=== PATIENT | female | born 2000 | race Asian ===

== ENCOUNTER 2019-06-29 14:36 | Inpatient (IN) ==
[2019-06-29] MEDS ORDERED: SODIUM CHLORIDE 0.9% 1000ML 1,000 ML IV ONE ×2 (15:03→17:05)
[2019-06-29] MEDS ORDERED: KETOROLAC 30 MG/ML VIAL IV STA (15:05)
[2019-06-29] MEDS ORDERED: ACETAMINOPHEN 325 MG TAB PO STA (15:05)
--- NOTE | 2019-06-29 15:19 | XRay Report ---
XR chest 1V portable CLINICAL HISTORY: SEPSIS COMPARISON STUDY: No previous studies for comparison. FINDINGS: Lung volumes are normal. Lungs are clear. There is no pneumothorax or pleural effusion. Car diac size is normal. Mediastinal contours are normal. There is no evidence for pulmonary edema. IMPRESSION: No acute cardiopulmonary findings. ACT 112: Negative or not required by law. Electronically signed by: Mitch Pena M.D. 06/29/2019 3:18 PM
[2019-06-29 15:39] LABS: Basophils # (auto) 0.03 K/uL (0-0.2); Basophils % (auto) 0.3 %; Eosinophils # (auto) 0.09 K/uL (0-0.5); Eosinophils % (auto) 0.8 %; Hematocrit (blood only) 39.1 % (37-47); Hemoglobin 13.5 g/dL (12.0-16.0); Immature Granulocytes # (auto) 0.03 K/uL (0.00-0.02); Immature Granulocytes % (auto) 0.3 %; Mean Corpuscular Hemoglobin 32.8 pg (25-34); Mean Corpuscular Hgb Conc 34.5 g/dL (32-36); Mean Corpuscular Volume 95.1 fL (80-100); Monocytes # (auto) 0.89 K/uL (0.11-0.59); Monocytes % (auto) 7.9 %; Neutrophils # (auto) 9.37 K/uL (1.4-6.5); Neutrophils % (auto) 82.7 %; Platelet Count 280 K/uL (130-400); RDW Coefficient of Variation 11.8 % (11.5-14.5); RDW Standard Deviation 41.3 fL (36.4-46.3); Red Blood Count 4.11 M/uL (4.2-5.4); White Blood Count 11.31 K/uL (4.8-10.8)
[2019-06-29 15:40] LABS: INR 1.1 (0.9-1.1); Partial Thromboplastin Ratio 1.1; Partial Thromboplastin Time 30.6 Seconds (21.0-31.0); Prothrombin Time 10.9 Seconds (9.0-12.0)
[2019-06-29 15:50] LABS: Alanine Aminotransferase 10 U/L (12-78); Albumin Level 4.1 gm/dl (3.4-5.0); Aspartate Aminotransferase 13 U/L (15-37); BUN Creatinine Ratio 24.4 (10-20); Blood Urea Nitrogen 17 mg/dl (7-18); Calcium 8.9 mg/dl (8.5-10.1); Carbon Dioxide 24 mmol/L (21-32); Chloride 107 mmol/L (98-107); Creatinine Clr Calc Pharmacy 101.2 ml/min; Est GFR (African American) 145.2; Est GFR (Non-African American) 125.3; Glucose 87 mg/dl (70-99); Magnesium 2.1 mg/dl (1.8-2.4); Potassium 3.6 mmol/L (3.5-5.1); Sodium 138 mmol/L (136-145)
[2019-06-29 15:55] LABS: Albumin Globulin Ratio 1.1 (0.9-2); Alkaline Phosphatase 84 U/L (45-117); Bilirubin,Total 0.7 mg/dl (0.2-1); Globulin 3.8 gm/dl (2.5-4.0); Total Protein 7.9 gm/dl (6.4-8.2); Troponin I < 0.015 ng/ml (0-0.045)
[2019-06-29 17:30] LABS: Appearance Urine Clear (Clear); Bacteria Urine Automated Negative (Negative); Bilirubin Urine Negative (Negative); Blood Urine 2+ (Negative); Color Urine Dark Yellow; Epithelial Cell Urine Auto 20-30 /lpf (0-5); Glucose Urine UA Negative (Negative); Leukocyte Esterase Urine Negative (Negative); Nitrite Urine Negative (Negative); Protein Urine Negative (Negative); Urobilinogen Urine Negative (Negative); pH Urine 5.5 (4.5-7.5)
[2019-06-29 17:33] LABS: Ketones Urine 4+ (Negative)
[2019-06-29 18:02] LABS: Influenza A virus by PCR Neg for Influ A (Neg); Influenza B virus by PCR Neg for Influ B (Neg)
[2019-06-29] MEDS ORDERED: OPTIRAY 320 125ml IV PRN (18:39)
--- NOTE | 2019-06-29 18:42 | Emergency Department Note ---
Entered by Eric Ayala acting as a scribe for Joselito Aguiar MD History of Present Illness General Chief complaint: Chest Pain Stated complaint: CHEST PAIN Time Seen by Provider: 06/29/19 14:46 Source: patient Limitations: no limitations History of Present Illness Location: chest Pain Consistency: + constant Maximum Pain Intensity: 5 Quality: + constant Relieved By: + rest Exacerbated By: + other (coughing) Associated symptoms: + cough The patient is a 18 year-old female w/ no pertinent PMHx who presents to the ED w/ CC of constant chest pain. The patient states she was referred to the ED from [facility]. She states her pain is worse with cough. She notes she did not take any medications. She states she has not been bringing up anything with her cough. She states resting makes her pain better. She states she was just at the [facility] in [place]. She states none of her roommates are sick. The patient denies having a history of blood clots, taking daily medications, having prior surgeries, and having a family history of medical conditions. She states her vaccinations are UTD. She denies smoking. Home Medications Home Medications Medication Instructions Recorded Confirmed Type ibuprofen 400 mg PO Q6H PRN 06/21/19 06/29/19 History Allergies Allergy/AdvReac Type Severity Reaction Status Date / Time No Known Allergies Allergy Unverified 06/29/19 15:22 Past Med/Surg History Medical History No pertinent past medical history Surgical History No pertinent past surgical history Family History Other No pertinent family history Social History Preferred Language: Cypriot Communication Ability: Effective Communication Tools: [employer] Intern Required: No Beliefs That Will Affect Care: None Current Living Situation: Other Current Living Situation Comment: student Feels Safe at Home: Yes Smoking Status: Unknown if ever smoked Hx Alcohol Use: No Hx Substance Use: No Review of Systems See HPI for pertinent positives & negatives. and A total of 10 systems reviewed and were otherwise negative Physical Exam Vital Signs Vital Signs - 24 hr 06/29/19 14:38 06/29/19 15:29 06/29/19 15:30 Temperature 37.5 C Temperature Source Oral Pulse Rate 120 H 103 H Pulse Rate from SpO2 Sensor 105 H Respiratory Rate 20 27 H Respiratory Effort / Characteristics Non-Labored Spontaneous Respiratory Depth Normal Blood Pressure 116/53 L Blood Pressure Mean 74 Pulse Oximetry 98 98 98 Oxygen Delivery Method Room Air Room Air Sepsis Recent Fever Within 48 Hours No Sepsis New/Unexplained Change in Mental Status No Sepsis Action Taken by Nursing No Action Required 06/29/19 15:32 06/29/19 15:33 06/29/19 15:40 Temperature Temperature Source Pulse Rate 113 H 109 H 111 H Pulse Rate from SpO2 Sensor 114 H 109 H 109 H Respiratory Rate 24 28 H 17 Respiratory Effort / Characteristics Respiratory Depth Blood Pressure 118/65 Blood Pressure Mean 77 Pulse Oximetry 97 94 100 Oxygen Delivery Method Sepsis Recent Fever Within 48 Hours Sepsis New/Unexplained Change in Mental Status Sepsis Action Taken by Nursing 06/29/19 15:50 06/29/19 16:00 06/29/19 16:01 Temperature Temperature Source Pulse Rate 108 H 104 H 101 H Pulse Rate from SpO2 Sensor 107 H 108 H 102 H Respiratory Rate 20 20 17 Respiratory Effort / Characteristics Respiratory Depth Blood Pressure 119/69 Blood Pressure Mean 83 Pulse Oximetry 97 99 98 Oxygen Delivery Method Sepsis Recent Fever Within 48 Hours Sepsis New/Unexplained Change in Mental Status Sepsis Action Taken by Nursing 06/29/19 16:10 06/29/19 16:20 06/29/19 16:30 Temperature Temperature Source Pulse Rate 105 H 104 H 99 H Pulse Rate from SpO2 Sensor 104 H 101 H 99 H Respiratory Rate 18 18 15 Respiratory Effort / Characteristics Respiratory Depth Blood Pressure 117/78 Blood Pressure Mean 83 Pulse Oximetry 100 99 99 Oxygen Delivery Method Sepsis Recent Fever Within 48 Hours Sepsis New/Unexplained Change in Mental Status Sepsis Action Taken by Nursing 06/29/19 16:31 06/29/19 16:40 06/29/19 16:50 Temperature Temperature Source Pulse Rate 100 H 93 H 86 Pulse Rate from SpO2 Sensor 101 H 93 H 87 Respiratory Rate 24 26 H 16 Respiratory Effort / Characteristics Respiratory Depth Blood Pressure Blood Pressure Mean Pulse Oximetry 98 97 97 Oxygen Delivery Method Sepsis Recent Fever Within 48 Hours Sepsis New/Unexplained Change in Mental Status Sepsis Action Taken by Nursing 06/29/19 17:00 06/29/19 17:10 06/29/19 17:20 Temperature Temperature Source Pulse Rate 89 105 H 96 H Pulse Rate from SpO2 Sensor 104 H 106 H 96 H Respiratory Rate 13 20 19 Respiratory Effort / Characteristics Respiratory Depth Blood Pressure Blood Pressure Mean Pulse Oximetry 92 97 98 Oxygen Delivery Method Sepsis Recent Fever Within 48 Hours Sepsis New/Unexplained Change in Mental Status Sepsis Action Taken by Nursing 06/29/19 17:30 06/29/19 17:31 06/29/19 17:40 Temperature Temperature Source Pulse Rate 88 103 H 93 H Pulse Rate from SpO2 Sensor 91 H 102 H 94 H Respiratory Rate 22 21 18 Respiratory Effort / Characteristics Respiratory Depth Blood Pressure 115/59 L Blood Pressure Mean 74 Pulse Oximetry 98 97 98 Oxygen Delivery Method Sepsis Recent Fever Within 48 Hours Sepsis New/Unexplained Change in Mental Status Sepsis Action Taken by Nursing 06/29/19 17:50 06/29/19 18:00 06/29/19 18:01 Temperature Temperature Source Pulse Rate 100 H 98 H 98 H Pulse Rate from SpO2 Sensor 99 H Respiratory Rate 19 25 H 26 H Respiratory Effort / Characteristics Respiratory Depth Blood Pressure 102/71 Blood Pressure Mean 82 Pulse Oximetry 98 Oxygen Delivery Method Sepsis Recent Fever Within 48 Hours Sepsis New/Unexplained Change in Mental Status Sepsis Action Taken by Nursing 06/29/19 18:10 06/29/19 18:20 Temperature Temperature Source Pulse Rate 106 H 100 H Pulse Rate from SpO2 Sensor Respiratory Rate 16 23 Respiratory Effort / Characteristics Respiratory Depth Blood Pressure Blood Pressure Mean Pulse Oximetry Oxygen Delivery Method Sepsis Recent Fever Within 48 Hours Sepsis New/Unexplained Change in Mental Status Sepsis Action Taken by Nursing GENERAL: Well appearing, well nourished, NAD, non-toxic. EYE EXAM: Normal conjunctiva. PERRL, no anisocoria and EOM's grossly intact w/o pain. OROPHARYNX: Moist mucous membranes. Normal dentition. NECK: Supple, no nuchal rigidity, no adenopathy, non-tender. no signs of meningismus. LUNGS: Clear to auscultation. Normal chest wall mechanics. HEART: Tachycardic rate. Normal rhythm. No MRG. CHEST: Mild reproducible chest wall pain bilateral lower chest. ABDOMEN: Abdomen soft, non-tender, normo-active bowel sounds, no masses, no rebound or guarding. BACK: No CVA TTP. SKIN: No rashes and no bruising. UPPER EXTREMITIES: Upper extremities are grossly normal. LOWER EXTREMITIES: No pitting edema. No calf pain. Negative Eugene's sign. NEURO EXAM: Cranial nerves II-XII grossly intact, normal speech. Moves all 4 extremities on command w/o issue. Course Course 1540: The patient was evaluated in room A9B, and a complete history and physical examination were performed. 1543: Continuous Cardiac Monitoring: An order was placed for continuous cardiac monitoring. The monitor shows a rate of 114 with a sinus tachycardia. 1700: I reevaluated the patient. I updated the patient on her labs and imaging and discussed the need for admission. She agrees with the plan. 1704: I discussed the patient's case with Dr. Feliz - [facility] Hospitalist. She will evaluate the patient for further management. Administered Medications Discontinued Medications Acetaminophen (Tylenol) 650 mg PO NOW STA Stop: 06/29/19 15:06 Last Admin: 06/29/19 15:29 Dose: 650 mg Documented by: [id number] Sodium Chloride (Nss 1000ml) 1,000 mls @ 999 mls/hr IV .Q1H1M ONE Stop: 06/29/19 16:03 Last Infusion: 06/29/19 17:24 Dose: 0 mls/hr Documented by: [id number] Admin: 06/29/19 15:29 Dose: 999 mls/hr Documented by: [id number] Sodium Chloride (Nss 1000ml) 1,000 mls @ 999 mls/hr IV .Q1H1M ONE Stop: 06/29/19 18:05 Last Infusion: 06/29/19 18:55 Dose: 0 mls/hr Documented by: [id number] Admin: 06/29/19 17:53 Dose: 999 mls/hr Documented by: [id number] Sodium Chloride (Nss 1000ml) 1,000 mls @ 80 mls/hr IV .[id number] RONEN Stop: 07/29/19 20:55 Last Infusion: 06/30/19 10:58 Dose: 0 mls/hr Documented by: [id number] Admin: 06/30/19 08:55 Dose: 80 mls/hr Documented by: [id number] Infusion: 06/30/19 08:55 Dose: 80 mls/hr Documented by: [id number] Admin: 06/29/19 22:23 Dose: 80 mls/hr Documented by: [id number] Ceftriaxone Sodium 2,000 mg/ (Dextrose) 70 mls @ 100 mls/hr IV Q24H [facility]; Protocol Stop: 07/04/19 21:59 Last Infusion: 06/29/19 23:05 Dose: 0 mls/hr Documented by: [id number] Admin: 06/29/19 22:23 Dose: 100 mls/hr Documented by: [id number] Ioversol (Optiray 320 125ml) 80 ml IV ONCE PRN PRN Reason: Interaction Checking Stop: 07/03/19 18:38 Last Admin: 06/29/19 18:39 Dose: 80 ml Documented by: [id number] Ketorolac Tromethamine (Toradol) 30 mg IV NOW STA Stop: 06/29/19 15:06 Last Admin: 06/29/19 15:29 Dose: 30 mg Documented by: [id number] Medical Decision Making Differential Diagnosis Differential diagnosis: Etiologies such as viral syndrome, otitis, pharyngitis, pneumonia, influenza, meningitis, urinary tract infection, sepsis, bacteremia, as well as others were entertained. Medical Records Attestation: I reviewed the patient's medical records. Home Medications Current Medication List: was personally reviewed by me Laboratory Data Attestation: I reviewed the patient's lab results. Result diagrams: 06/30/19 06:55 06/30/19 00:16 Lab Results 06/29/19 06/29/19 06/29/19 Range/Units 15:15 15:15 15:15 WBC 11.31 H (4.8-10.8) K/uL RBC 4.11 L (4.2-5.4) M/uL Hgb 13.5 (12.0-16.0) g/dL Hct 39.1 (37-47) % MCV 95.1 (80-100) fL MCH 32.8 (25-34) pg MCHC 34.5 (32-36) g/dL RDW Std Deviation 41.3 (36.4-46.3) fL RDW Coeff of Danita 11.8 (11.5-14.5) % Plt Count 280 (130-400) K/uL MPV 9.0 (7.4-10.4) fL Immature Gran % (Auto) 0.3 % Neut % (Auto) 82.7 % Lymph % (Auto) 8.0 % Edwards % (Auto) 7.9 % Eos % (Auto) 0.8 % Baso % (Auto) 0.3 % Immature Gran # (Auto) 0.03 H (0.00-0.02) K/uL Neut # (Auto) 9.37 H (1.4-6.5) K/uL Lymph # (Auto) 0.90 L (1.2-3.4) K/uL Edwards # (Auto) 0.89 H (0.11-0.59) K/uL Eos # (Auto) 0.09 (0-0.5) K/uL Baso # (Auto) 0.03 (0-0.2) K/uL Absolute Nucleated RBC 0.00 (0-0) K/uL Nucleated RBC % (auto) 0.0 % PT 10.9 (9.0-12.0) Seconds INR 1.1 (0.9-1.1) APTT 30.6 (21.0-31.0) Seconds PTT Ratio 1.1 Sodium (136-145) mmol/L Potassium (3.5-5.1) mmol/L Chloride (98-107) mmol/L Carbon Dioxide (21-32) mmol/L Anion Gap (3-11) BUN (7-18) mg/dl Creatinine (0.6-1.2) mg/dl Est Cr Clr Drug Dosing ml/min Est GFR ( Amer) Est GFR (Non-Af Amer) BUN/Creatinine Ratio (10-20) Glucose (70-99) mg/dl Lactate (0.4-2.0) mmol/L Calcium (8.5-10.1) mg/dl Magnesium (1.8-2.4) mg/dl Total Bilirubin (0.2-1) mg/dl AST (15-37) U/L ALT (12-78) U/L Alkaline Phosphatase (45-117) U/L Troponin I (0-0.045) ng/ml Total Protein (6.4-8.2) gm/dl Albumin (3.4-5.0) gm/dl Globulin (2.5-4.0) gm/dl Albumin/Globulin Ratio (0.9-2) Procalcitonin 0.09 (0-0.5) ng/ml Urine Color Urine Appearance (Clear) Urine pH (4.5-7.5) Ur Specific [place] (1.000-1.030) Urine Protein (Negative) Urine Glucose (UA) (Negative) Urine Ketones (Negative) Urine Blood (Negative) Urine Nitrite (Negative) Urine Bilirubin (Negative) Urine Urobilinogen (Negative) Ur Leukocyte Esterase (Negative) Urine WBC (Auto) (0-5) /hpf Urine RBC (Auto) (0-4) /hpf U Hyaline Cast (Auto) (0-5) /lpf U Epithel Cells (Auto) (0-5) /lpf Urine Bacteria (Auto) (Negative) Influenza Type A (PCR) (Neg) Influenza Type B (PCR) (Neg) Miscellaneous Test 06/29/19 06/29/19 06/29/19 Range/Units 15:15 15:15 17:10 WBC (4.8-10.8) K/uL RBC (4.2-5.4) M/uL Hgb (12.0-16.0) g/dL Hct (37-47) % MCV (80-100) fL MCH (25-34) pg MCHC (32-36) g/dL RDW Std Deviation (36.4-46.3) fL RDW Coeff of Danita (11.5-14.5) % Plt Count (130-400) K/uL MPV (7.4-10.4) fL Immature Gran % (Auto) % Neut % (Auto) % Lymph % (Auto) % Edwards % (Auto) % Eos % (Auto) % Baso % (Auto) % Immature Gran # (Auto) (0.00-0.02) K/uL Neut # (Auto) (1.4-6.5) K/uL Lymph # (Auto) (1.2-3.4) K/uL Edwards # (Auto) (0.11-0.59) K/uL Eos # (Auto) (0-0.5) K/uL Baso # (Auto) (0-0.2) K/uL Absolute Nucleated RBC (0-0) K/uL Nucleated RBC % (auto) % PT (9.0-12.0) Seconds INR (0.9-1.1) APTT (21.0-31.0) Seconds PTT Ratio Sodium 138 (136-145) mmol/L Potassium 3.6 (3.5-5.1) mmol/L Chloride 107 (98-107) mmol/L Carbon Dioxide 24 (21-32) mmol/L Anion Gap 7.0 (3-11) BUN 17 (7-18) mg/dl Creatinine 0.69 (0.6-1.2) mg/dl Est Cr Clr Drug Dosing 101.2 ml/min Est GFR ( Amer) 145.2 Est GFR (Non-Af Amer) 125.3 BUN/Creatinine Ratio 24.4 H (10-20) Glucose 87 (70-99) mg/dl Lactate 1.0 (0.4-2.0) mmol/L Calcium 8.9 (8.5-10.1) mg/dl Magnesium 2.1 (1.8-2.4) mg/dl Total Bilirubin 0.7 (0.2-1) mg/dl AST 13 L (15-37) U/L ALT 10 L (12-78) U/L Alkaline Phosphatase 84 (45-117) U/L Troponin I < 0.015 (0-0.045) ng/ml Total Protein 7.9 (6.4-8.2) gm/dl Albumin 4.1 (3.4-5.0) gm/dl Globulin 3.8 (2.5-4.0) gm/dl Albumin/Globulin Ratio 1.1 (0.9-2) Procalcitonin (0-0.5) ng/ml Urine Color Dark Yellow Urine Appearance Clear (Clear) Urine pH 5.5 (4.5-7.5) Ur Specific [place] 1.030 (1.000-1.030) Urine Protein Negative (Negative) Urine Glucose (UA) Negative (Negative) Urine Ketones 4+ H (Negative) Urine Blood 2+ H (Negative) Urine Nitrite Negative (Negative) Urine Bilirubin Negative (Negative) Urine Urobilinogen Negative (Negative) Ur Leukocyte Esterase Negative (Negative) Urine WBC (Auto) 5-10 H (0-5) /hpf Urine RBC (Auto) 10-30 H (0-4) /hpf U Hyaline Cast (Auto) 1-5 (0-5) /lpf U Epithel Cells (Auto) 20-30 H (0-5) /lpf Urine Bacteria (Auto) Negative (Negative) Influenza Type A (PCR) (Neg) Influenza Type B (PCR) (Neg) Miscellaneous Test 06/29/19 06/29/19 Range/Units 17:10 17:13 WBC (4.8-10.8) K/uL RBC (4.2-5.4) M/uL Hgb (12.0-16.0) g/dL Hct (37-47) % MCV (80-100) fL MCH (25-34) pg MCHC (32-36) g/dL RDW Std Deviation (36.4-46.3) fL RDW Coeff of Danita (11.5-14.5) % Plt Count (130-400) K/uL MPV (7.4-10.4) fL Immature Gran % (Auto) % Neut % (Auto) % Lymph % (Auto) % Edwards % (Auto) % Eos % (Auto) % Baso % (Auto) % Immature Gran # (Auto) (0.00-0.02) K/uL Neut # (Auto) (1.4-6.5) K/uL Lymph # (Auto) (1.2-3.4) K/uL Edwards # (Auto) (0.11-0.59) K/uL Eos # (Auto) (0-0.5) K/uL Baso # (Auto) (0-0.2) K/uL Absolute Nucleated RBC (0-0) K/uL Nucleated RBC % (auto) % PT (9.0-12.0) Seconds INR (0.9-1.1) APTT (21.0-31.0) Seconds PTT Ratio Sodium (136-145) mmol/L Potassium (3.5-5.1) mmol/L Chloride (98-107) mmol/L Carbon Dioxide (21-32) mmol/L Anion Gap (3-11) BUN (7-18) mg/dl Creatinine (0.6-1.2) mg/dl Est Cr Clr Drug Dosing ml/min Est GFR ( Amer) Est GFR (Non-Af Amer) BUN/Creatinine Ratio (10-20) Glucose (70-99) mg/dl Lactate (0.4-2.0) mmol/L Calcium (8.5-10.1) mg/dl Magnesium (1.8-2.4) mg/dl Total Bilirubin (0.2-1) mg/dl AST (15-37) U/L ALT (12-78) U/L Alkaline Phosphatase (45-117) U/L Troponin I (0-0.045) ng/ml Total Protein (6.4-8.2) gm/dl Albumin (3.4-5.0) gm/dl Globulin (2.5-4.0) gm/dl Albumin/Globulin Ratio (0.9-2) Procalcitonin (0-0.5) ng/ml Urine Color Urine Appearance (Clear) Urine pH (4.5-7.5) Ur Specific [place] (1.000-1.030) Urine Protein (Negative) Urine Glucose (UA) (Negative) Urine Ketones (Negative) Urine Blood (Negative) Urine Nitrite (Negative) Urine Bilirubin (Negative) Urine Urobilinogen (Negative) Ur Leukocyte Esterase (Negative) Urine WBC (Auto) (0-5) /hpf Urine RBC (Auto) (0-4) /hpf U Hyaline Cast (Auto) (0-5) /lpf U Epithel Cells (Auto) (0-5) /lpf Urine Bacteria (Auto) (Negative) Influenza Type A (PCR) Neg for Influ A (Neg) Influenza Type B (PCR) Neg for Influ B (Neg) Miscellaneous Test REPORT Imaging Data Radiologist's Impression: Radiology results as stated below per my review and the radiologist's interpretation: XR chest 1V portable CLINICAL HISTORY: SEPSIS COMPARISON STUDY: No previous studies for comparison. FINDINGS: Lung volumes are normal. Lungs are clear. There is no pneumothorax or pleural effusion. Cardiac size is normal. Mediastinal contours are normal. There is no evidence for pulmonary edema. IMPRESSION: No acute cardiopulmonary findings. ACT 112: Negative or not required by law. Electronically signed by: Mitch Pena M.D. 06/29/2019 3:[address] angio chest PE protocol CLINICAL HISTORY: 18 years-old Female presenting with abnormal, bilateral chest/rib pain, pleuritic chest pain. TECHNIQUE: Multidetector CT angiography of the chest was performed after administration of intravenous contrast. 3-D volumetric and/or maximum intensity projection (MIP) images were subsequently reconstructed for review. IV contrast: 80 mL of Optiray 320. One or more dose lowering techniques were used consistent with the principles of ALARA (as low as reasonably achievable), including automatic exposure control, mA or kV adjustment to individual patient size, and/or use of iterative reconstruction. COMPARISON: Chest x-ray performed earlier today. CT DOSE (mGy.cm): The estimated cumulative dose is 222.09 mGy.cm. FINDINGS: Impregnator Electrolytic Capacitors topogram: Unremarkable. Pulmonary vasculature: The study is adequate for assessment of the pulmonary vascular tree. No filling defect within the pulmonary arteries to suggest embolus. Main pulmonary artery is not enlarged. No flattening of the interventricular septum. No intracardiac filling defect. No reflux of contrast into the hepatic veins. Remaining chest: Soft tissues: Normal thyroid and thoracic inlet. No axillary, supraclavicular, mediastinal, or hilar lymphadenopathy. Normal aorta. Normal heart size. No pericardial or pleural effusion. Upper abdomen normal. Lungs and airways: No pneumothorax. Central airways patent. Pulmonary arteries are not significantly enlarged relative to adjacent bronchi. No interlobular septal thickening. No focal infiltrate or nodule. Musculoskeletal: Normal osseous structures. IMPRESSION: 1. No evidence of pulmonary embolus. No acute intrathoracic pathology. ACT 112: Negative or not required by law. Electronically signed by: Angel Issa M.D. 06/29/2019 6:50 PM Dictated: 06/29/191845 Transcribed: 06/29/191845 ECG Data Attestation: I personally reviewed and interpreted this ECG as follows: Indication: + chest pain Rate (beats per minute): 114 ECG Intervals/blocks: + Normal QRS, + Normal QT, + Normal IL and + Normal QT-c ECG [place]: + Right axis deviation ECG ST segments: + T-wave inversions (inferiorly and in V3) Comparison ECG Date: no prior available Blood Pressure Blood Pressure Findings: Normal blood pressure Blood Pressure Disposition: further management by hospitalist [facility] Narrative The patient is a 18 year-old female w/ no pertinent PMHx who presents to the ED w/ CC of constant chest pain. Patient was seen in eval at the bedside. The patient did present with upper respiratory type symptoms rib pain and cough. The patient is a recent travel letter from [facility]. Given this concern the patient was placed in isolation room with respiratory precautions and negative pressure isolation. The patient did a bladder completed along with influenza swabs. The patient was treated with IV fluids. The patient reportedly did have positive d-dimer as an outpatient and so a CT angiogram PE study was also ordered. I did speak with the on-call hospitalist given the concerns for possible public health issues given the recent travel from [place]. Patient is agreeable to stay at this time. Additional swabs and studies were ordered to be sent to the [facility] for further testing. Patient was admitted to the medicine service. Impression & Plan URI (upper respiratory infection), Rib pain, Cough Discharge Plan Visit Data *Final* Discharge Date/Time: 06/29/19 20:49 Chief Complaint: Chest Pain Stated Complaint: CHEST PAIN ED Provider: Joselito Aguiar Discharge Problem: URI (upper respiratory infection), Rib pain, Cough Patient Disposition: Admitted As Inpatient Discharge Instructions Interventions: ED Discharge Assessment Last Done: 06/29/19 20:49 Discharge Problem: URI (upper respiratory infection) Qualifiers: URI type: unspecified URI Qualified Code(s): J06.9 - Acute upper respiratory infection, unspecified The scribe's documentation has been prepared under my direction and personally reviewed by me in its entirety. I confirm that the note above accurately reflects all work, treatment, procedures, and medical decision making performed by me.
--- NOTE | 2019-06-29 18:52 | CT Scan Report ---
CT angio chest PE protocol CLINICAL HISTORY: 18 years-old Female presenting with abnormal, bilateral chest/rib pain, pleuritic c hest pain. TECHNIQUE: Multidetector CT angiography of the chest was performed after administration of intravenou s contrast. 3-D volumetric and/or maximum intensity projection (MIP) images were subsequently reconst ructed for review. IV contrast: 80 mL of Optiray 320. One or more dose lowering techniques were used consistent with the principles of ALARA (as low as reasonably achievable), including automatic exposu re control, mA or kV adjustment to individual patient size, and/or use of iterative reconstruction. COMPARISON: Chest x-ray performed earlier today. CT DOSE (mGy.cm): The estimated cumulative dose is 222.09 mGy.cm. FINDINGS: Word Processor Operator topogram: Unremarkable. Pulmonary vasculature: The study is adequate for assessment of the pulmonary vascular tree. No filling defect within the pul monary arteries to suggest embolus. Main pulmonary artery is not enlarged. No flattening of the inter ventricular septum. No intracardiac filling defect. No reflux of contrast into the hepatic veins. Remaining chest: Soft tissues: Normal thyroid and thoracic inlet. No axillary, supraclavicular, mediastinal, or hilar lymphadenopathy. Normal aorta. Normal heart size. No pericardial or pleural effusion. Upper abdomen n ormal. Lungs and airways: No pneumothorax. Central airways patent. Pulmonary arteries are not significantly enlarged relative to adjacent bronchi. No interlobular septal thickening. No focal infiltrate or nodu le. Musculoskeletal: Normal osseous structures. IMPRESSION: 1. No evidence of pulmonary embolus. No acute intrathoracic pathology. ACT 112: Negative or not required by law. Electronically signed by: Angel Issa M.D. 06/29/2019 6:50 PM
[2019-06-29] MEDS ORDERED: KETOROLAC 30 MG/ML VIAL IV PRN (20:56)
[2019-06-29] MEDS ORDERED: MAGNESIUM HYDROXIDE SUSP 30 ML UDC PO PRN (20:56)
[2019-06-29] MEDS ORDERED: ACETAMINOPHEN 325 MG TAB PO PRN (20:56)
[2019-06-29] MEDS ORDERED: ALUMINUM/MAGNESIUM SUSP 30 ML UDC PO PRN (20:56)
[2019-06-29] MEDS ORDERED: ONDANSETRON INJ 2 MG/ML 2 ML VIAL IV PRN (20:56)
--- NOTE | 2019-06-29 21:24 | History & Physical Report ---
Date of Service June 29, 2019 Assessment & Plan (1) Urinary tract infection: Admit patient to PCU on telemetry Vital signs every 4 hours Started ceftriaxone 2 g IV daily for urinary tract infection empirically Urine culture pending Was a suspect the patient has infection with coronavirus by the ER physician. We will continue following troponins x3. DVT prophylaxis SCDs and teds. Patient is ambulatory. Sputum culture and blood culture pending. Follow-up with results. Full code Present on Admission?: Yes (2) Rib pain: Not clear origin of the rib pain on right side. X rays no acute cardiopulmonary findings. Pain management Present on Admission?: Yes History of Present Illness Chief Complaint: Right upper quadrant pain, chest pain Primary Care Provider: [facility] The patient is a 18 years old female without pertinent past medical history who presented to the emergency room with complaint of constant chest pain and right upper quadrant pain. The patient states that she was referred to the ED from [facility] at bedtime. She states that her pain is worse with cough. She states she is not taking any medication. Patient states that she has not been bringing up any any sputum. She states resting makes her pain better. She states that she was just [facility] in [place]. She states none of her roommates are sick. The patient denies fever, chills, abdominal pain frequency or urgency. Patient denies abusing drugs, smoking, using power drinks. Labs are reviewed: WBC is 11.31, hemoglobin 13.5, hematocrit 39.1, platelets 280, sodium 138, potassium 3.6, chloride 107, anion gap 7, BUN 17, creatinine 0.69, GFR 125.3, lactate 1, calcium 8.9, magnesium 2.1, total bilirubin 0.7, AST 13, ALT 10, troponin 0.015. Total protein 7.9, albumin 4.1, globulin 3.8, procalcitonin 0.09 beta-hCG negative. Urine 5.5, specific gravity 1.030, urine ketone four-point positive, urine blood 2+, WBCs 5-10, urine RBCs 10-30, epithelial cells 20-30. Influenza A and B neg. chest CTA shows no evidence of pulmonary embolus no acute intrathoracic pathology. Decision was made to admit patient to PCU on telemetry we will rule out elkins virus, treat urinary tract infection. Allergies Allergy/AdvReac Type Severity Reaction Status Date / Time No Known Allergies Allergy Unverified 06/29/19 15:22 Home Medications Home Medications Medication Instructions Recorded Confirmed Type ibuprofen 400 mg PO Q6H PRN 06/21/19 06/29/19 History Past Med/Surg History Medical History No pertinent past medical history Surgical History No pertinent past surgical history Family History Other No pertinent family history Social History Preferred Language: Divehi Communication Tools: IPad Feels Safe at Home: Yes Smoking Status: Never smoker Review of Systems Review of Systems: All systems reviewed & are unremarkable except as noted in HPI & below Physical Exam Constitutional: WD/WN, vitals as above well developed Eyes: PERRL, conjunctivae normal, anicteric sclerae ENMT: external ear and nose normal, oropharynx normal Neck: trachea midline, no thyromegaly Respiratory: normal respiratory effort, lungs clear to auscultation Cardiovascular: RRR, no murmur, no edema Gastrointestinal (Abdomen): normal bowel sounds, soft, nontender, no hepatosplenomegaly Musculoskeletal: no cyanosis or clubbing, extremities motor strength 5/5 Skin: no rashes, warm and dry Neurologic: patellar DTR's 2+ bilat, sensation intact Psychiatric: A+Ox3, euthymic affect Lymphatic: no cervical or axillary lymphadenopathy Results & Data Vital Signs (Past 12 Hours) Vital Signs Temp Pulse Resp BP Pulse Ox 06/29/19 20:40 81 20 97 06/29/19 20:30 37.0 C 90 17 116/78 99 06/29/19 20:20 86 26 H 98 06/29/19 20:10 85 24 98 06/29/19 20:01 92 H 18 99 06/29/19 20:00 85 26 H 112/64 97 06/29/19 19:50 88 24 98 06/29/19 19:40 85 26 H 97 06/29/19 19:31 94 H 20 98 06/29/19 19:30 89 20 113/64 98 06/29/19 19:20 90 23 95 06/29/19 19:10 89 20 98 06/29/19 19:01 86 18 98 06/29/19 19:00 94 H 23 116/65 98 06/29/19 18:51 102 H 20 100 06/29/19 18:50 102 H 20 124/64 99 06/29/19 18:48 110 H 18 98 06/29/19 18:20 100 H 23 06/29/19 18:10 106 H 16 06/29/19 18:01 98 H 26 H 06/29/19 18:00 98 H 25 H 102/71 06/29/19 17:50 100 H 19 98 06/29/19 17:40 93 H 18 98 06/29/19 17:31 103 H 21 97 06/29/19 17:30 88 22 115/59 L 98 06/29/19 17:20 96 H 19 98 06/29/19 17:10 105 H 20 97 06/29/19 17:00 89 13 92 06/29/19 16:50 86 16 97 06/29/19 16:40 93 H 26 H 97 06/29/19 16:31 100 H 24 98 06/29/19 16:30 99 H 15 117/78 99 06/29/19 16:20 104 H 18 99 06/29/19 16:10 105 H 18 100 06/29/19 16:01 101 H 17 98 06/29/19 16:00 104 H 20 119/69 99 06/29/19 15:50 108 H 20 97 06/29/19 15:40 111 H 17 100 06/29/19 15:33 109 H 28 H 94 06/29/19 15:32 113 H 24 118/65 97 06/29/19 15:30 103 H 27 H 98 06/29/19 15:29 98 06/29/19 14:38 37.5 C 120 H 20 116/53 L 98 Code Status & VTE Plan Code Status Full Code VTE Prophylaxis Plan VTE Prophylaxis will be ordered: Yes PG Care Time/CCT Total # of Minutes Spent Total Time Spent with Patient: Total time spent is greater than 50% in coordination of care (as documented) at patient's floor/unit and/or counseling patient:
[2019-06-29] MEDS ORDERED: cefTRIAXone SODIUM 2,000 MG in DEXTROSE 5% 50 ML IV SCH (22:00)
[2019-06-29] MEDS: SODIUM CHLORIDE 0.9% 1000ML 1,000 ML IV SCH (22:23)
--- NOTE | 2019-06-29 23:40 | Electrocardiogram Report ---
Test Reason : Blood Pressure : / mmHG Vent. Rate : 114 BPM Atrial Rate : 114 BPM P-R Int : 138 ms QRS Dur : 088 ms QT Int : 336 ms P-R-T Axes : 078 109 005 degrees QTc Int : 463 ms Sinus tachycardia Rightward axis Nonspecific T wave abnormality Abnormal ECG No previous ECGs available Confirmed by Jean Lindsey ([id number]) on 06/29/2019 11:39:41 PM Referred By: ED Confirmed By:Jean Lindsey
[2019-06-30 00:45] LABS: Alanine Aminotransferase 7 U/L (12-78); Albumin Level 3.2 gm/dl (3.4-5.0); Aspartate Aminotransferase 9 U/L (15-37); BUN Creatinine Ratio 18.9 (10-20); Blood Urea Nitrogen 12 mg/dl (7-18); Calcium 7.7 mg/dl (8.5-10.1); Carbon Dioxide 26 mmol/L (21-32); Chloride 112 mmol/L (98-107); Creatinine Clr Calc Pharmacy 112.4 ml/min; Est GFR (African American) 149.7; Est GFR (Non-African American) 129.1; Glucose 84 mg/dl (70-99); Potassium 3.6 mmol/L (3.5-5.1); Sodium 141 mmol/L (136-145)
[2019-06-30 01:05] LABS: Alkaline Phosphatase 71 U/L (45-117); Bilirubin,Total 0.5 mg/dl (0.2-1); Globulin 3.2 gm/dl (2.5-4.0); Total Protein 6.4 gm/dl (6.4-8.2); Troponin I < 0.015 ng/ml (0-0.045)
[2019-06-30 07:12] LABS: Basophils # (auto) 0.03 K/uL (0-0.2); Basophils % (auto) 0.3 %; Eosinophils # (auto) 0.08 K/uL (0-0.5); Eosinophils % (auto) 0.9 %; Hematocrit (blood only) 33.9 % (37-47); Hemoglobin 11.2 g/dL (12.0-16.0); Immature Granulocytes # (auto) 0.01 K/uL (0.00-0.02); Immature Granulocytes % (auto) 0.1 %; Lymphocytes # (auto) 0.96 K/uL (1.2-3.4); Lymphocytes % (auto) 10.3 %; Mean Corpuscular Hemoglobin 31.7 pg (25-34); Mean Platelet Volume 8.8 fL (7.4-10.4); Monocytes # (auto) 0.77 K/uL (0.11-0.59); Monocytes % (auto) 8.3 %; Neutrophils # (auto) 7.48 K/uL (1.4-6.5); Neutrophils % (auto) 80.1 %; Platelet Count 232 K/uL (130-400); RDW Coefficient of Variation 11.8 % (11.5-14.5); RDW Standard Deviation 41.3 fL (36.4-46.3); Red Blood Count 3.53 M/uL (4.2-5.4); White Blood Count 9.33 K/uL (4.8-10.8)
[2019-06-30] MEDS: SODIUM CHLORIDE 0.9% 1000ML 1,000 ML IV SCH (08:55)
[2019-06-30 14:36] LABS: Pregnancy Test, Urine Negative (Negative)
--- NOTE | 2019-07-03 16:27 | Discharge Summary ---
Date of Service June 30, 2019 Admission HPI Per Admitting Provider The patient is a 18 years old female without pertinent past medical history who presented to the emergency room with complaint of constant chest pain and right upper quadrant pain. The patient states that she was referred to the ED from [facility] at bedtime. She states that her pain is worse with cough. She states she is not taking any medication. Patient states that she has not been bringing up any any sputum. She states resting makes her pain better. She states that she was just [facility] in [place]. She states none of her roommates are sick. The patient denies fever, chills, abdominal pain frequency or urgency. Patient denies abusing drugs, smoking, using power drinks. Labs are reviewed: WBC is 11.31, hemoglobin 13.5, hematocrit 39.1, platelets 280, sodium 138, potassium 3.6, chloride 107, anion gap 7, BUN 17, creatinine 0.69, GFR 125.3, lactate 1, calcium 8.9, magnesium 2.1, total bilirubin 0.7, AST 13, ALT 10, troponin 0.015. Total protein 7.9, albumin 4.1, globulin 3.8, procalcitonin 0.09 beta-hCG negative. Urine 5.5, specific gravity 1.030, urine ketone four-point positive, urine blood 2+, WBCs 5-10, urine RBCs 10-30, epithelial cells 20-30. Influenza A and B neg. chest CTA shows no evidence of pulmonary embolus no acute intrathoracic pathology. Decision was made to admit patient to PCU on telemetry we will rule out schaefer virus, treat urinary tract infection. Admission Exam Per Admitting Provider Constitutional: WD/WN, vitals as above well developed Eyes: PERRL, conjunctivae normal, anicteric sclerae ENMT: external ear and nose normal, oropharynx normal Neck: trachea midline, no thyromegaly Respiratory: normal respiratory effort, lungs clear to auscultation Cardiovascular: RRR, no murmur, no edema Gastrointestinal (Abdomen): normal bowel sounds, soft, nontender, no hepatosplenomegaly Musculoskeletal: no cyanosis or clubbing, extremities motor strength 5/5 Skin: no rashes, warm and dry Neurologic: patellar DTR's 2+ bilat, sensation intact Psychiatric: A+Ox3, euthymic affect Lymphatic: no cervical or axillary lymphadenopathy Principal Diagnosis Pleuritis Discharge Exam Constitutional WD/WN, vitals as above Eyes + anicteric sclerae; normal pupil size ENMT external ear and nose normal, oropharynx normal Respiratory normal respiratory effort, lungs clear to auscultation Cardiovascular RRR, no murmur, no edema Chest (Breasts) Additional Comments: No pain on palpation of chest Gastrointestinal (Abdomen) normal bowel sounds, soft, nontender, no hepatosplenomegaly Musculoskeletal no cyanosis or clubbing, extremities motor strength 5/5 Skin no rashes, warm and dry Neurologic moves all extremities and awake; no focal motor deficits and not confused Speech / Cognition: normal speech Psychiatric A+Ox3, euthymic affect Discharge Data Allergies Allergy/AdvReac Type Severity Reaction Status Date / Time No Known Allergies Allergy Unverified 06/29/19 15:22 Consultations 06/29/19 17:14 ED Decision to Admit Stat Ordered Studies 06/29/19 17:05 CT angio chest PE protocol Stat Hospital Course (1) Pleuritis: Karsten Melvin is a 18 year old female who recently return from [facility] who was observed overnight at [facility] from June 29 to 2019 due to pleuritic type chest pain and concern for coronavirus. CTA lungs for PE was negative for pneumonia or pulmonary embolism. Samples were sent to the [facility] for further testing regarding this and she will be contacted for the results by the department of health. The department of health recommended self isolation and limiting her exposure to others until testing for coronavirus is back. She was diagnosed with pleuritis (bilateral inspiratory chest pain) - most likely due to an unspecified viral infection. Rx ibuprofen PRN. In addition there was concern for a urinary tract infection due to an episode of painful urination. Urine culture is pending at this time but negative over 24 hours. No antibiotics were prescribed but she will be contacted if subsequently positive. Total Time Total Time Spent Total Time Spent (In Minutes): 50 Discharge Plan Discharge Items Patient Disposition: Home - Self-Care Reason For Visit: POSIBLE SCHAEFER VIRUS,ABDOMINAL PAIN,CHEST PAIN Discharge Diagnosis: Pleuritis Activity: Resume your previous activity Non-emergency contact: Primary Care Provider Call non-emergency contact if: you have any medication questions and your symptoms worsen Follow-up/Referrals: [place] [Primary Care Provider] - Diet: Regular Addtl Attending Provider Instructions: You were observed overnight at [facility] from June 29 to 2019 due to pleuritic type chest pain and concern for coronavirus given your recent return from [facility] in [place]. Samples have been sent to the [facility] for further testing regarding this and you will be contacted for the results by the department of health. If you have any questions or concerns please call the hospital on [phone] Richard this week or nurse coordinator Brina Lara after Thursday. If you have a fever > 38.0 degrees celsius please contact community health systems for further advice. The department of health recommend self isolation and limiting your exposure to others until testing for coronavirus is back. You were diagnosed with pleuritis - likely due to an unspecified viral infection since you CT scan of your lungs was normal. Recommend treating with ibuprofen as needed for pain. In addition there was concern for a urinary tract infection due to an episode of painful urination. Urine culture is pending at this time. No antibiotics are required currently but you will be contacted if your culture is subsequently positive. Kind regards, Dr Phillip Richard Pending Studies at Discharge: Yes (Coronarvirus PCR, urine and blood cultures) Stand-Alone Forms: My [facility], Work/School Release (Inpt), Smoking Cessation Medications and DC Order Prescriptions: Continued ibuprofen 200 mg Tablet 400 mg PO Q6H PRN (Reason: Pain) RF: 0 Discharge Orders: Discharge Order (Routine); Ordered 06/30/19 Ordered By: Phillip Richard Admission Data Admit Date/Time: 06/29/19 19:42 Attending Provider: Phillip Richard Admit Provider: Deejay Feliz Primary Care Provider: [facility] [address] Other Providers: Deejay Feliz Other Interventions: Discharge Summary Assessment (RN) Last Done: 06/30/19 17:21 DC Date/Time DO NOT enter until pt leaves facility: 06/30/19 19:44 Coding Level of Care Code 71927 OBS Care - Discharge Diagnoses Pleuritis R09.1
--- NOTE | 2019-07-04 13:34 | Coding Query ---
CODING QUERY To promote full compliance with coding requirements relating to patient care, provider participation is requested in all cases of cosmetician uncertainty. Please assist us with the question(s) below: Coding Question(s): Patient admitted due to respiratory symptoms - history of recent trip to [place]. Please review final labs [facility] and provide a final diagnosis. Thanks for your help! Azar Banks [facility] Physician's Response(s): No change in diagnosis of pleuritis.. No Viral PCR detected. Principal Diagnosis: "that condition established after study, to be chiefly responsible for occasioning the admission of the patient to the hospital for care." Co-Existing Principal Diagnosis: "when two or more diagnoses equally meet the criteria for principal diagnosis as determined by the circumstances of admission, diagnostic work up, and/or therapy provided, and the Alphabetic Index, Tabular List, or another coding guideline does not provide sequencing direction, any one of the diagnoses may be sequenced first." "When the physician has documented what appears to be a current diagnosis in the body of the record, but has not included the diagnosis in the final diagnostic statement, the physician should be asked whether the diagnosis should be added." (Source Coding [facility] 2 QTR90. p3-4) JAMESON
== END 2019-06-30 19:44 | disposition home or self-care (01) | DRG 195 ==
LOC: ED 14:36 → SUATTDRO 19:42 → 2S 19:42